=== PATIENT | female | born 1945 | race Caucasian/White ===

== ENCOUNTER 2017-07-22 02:42 | Emergency (ER) | payer MEDICARE, OTHER ==
[~2017-07-22] VITALS: Ht 167.6 cm; Wt 63.5 kg
[~2017-07-22 02:42] MED LIST: ACETAMINOPHEN325 M1 PO; ADVAIR 250-501 EACH INH; ALBUTEROL2.5 MG/3 M INH; AMLODIPINE BESY10 MG PO; ASPIRIN325 MG PO; ATORVASTATIN CA80 MG PO; BUPROPION HCL100 M1 PO; BUPROPION HCL200 MG PO; CARVEDILOL25 MG PO; CARVEDILOL3.125 MG PO; CLOPIDOGREL75 MG PO; COZAAR50 MG PO; DOXAZOSIN MESYLA2 MG PO; FLOVENT HFA12 G1 INH; HYDROCHLOROTHIA25 MG PO; IPRATROPIU0.2 MG/1 M INH; LORAZEPAM1 MG PO; NITROSTAT0.4 MG SL; NORCO 5-325 TA1 EACH PO; OXYCODONE HCL5 MG PO; PERCOCET 10-321 EACH PO; POLYETHYLENE G255 GM PO; PREDNISONE10 MG PO; PREDNISONE20 MG PO; PRILOSEC20 MG PO; PROAIR HFA8.5 GM INH; SEREVENT DISKU1 PUFF INH; SPIRIVA18 MCG INH; ST. JOSEPH ASPI81 MG PO; VENTOLIN HFA18 GM INH
[2017-07-22] MEDS ORDERED: NORVASC10 MG PO (03:37)
[2017-07-22] MEDS ORDERED: PULMICORT FLE180 MCG INH (03:43)
[2017-07-22] MEDS ORDERED: LEXAPRO10 MG PO (03:44)
[2017-07-22] MEDS ORDERED: PREDNISONE20 MG PO (04:29)
--- NOTE | 2017-07-22 12:57 | EKG ---
[facility] [address] [facility] [place] [address] Signed Normal sinus rhythm Nonspecific ST and T wave abnormality Inferior leads and Lateral leads. Abnormal ECG No previous ECGs available Confirmed by EVARISTO RAY MD ([id number]) on 07/22/2017 12:57:18 PM Electronically Signed By: EVARISTO RAY MD 07/22/17 1257 PATIENT NAME: SIA LOWRY LANDRY Electrocardiogram DATE OF : 45 PHYSICIAN: EVARISTO RAY MD REPORT #: [id number] REPORT IS CONFIDENTIAL AND NOT TO BE RELEASED WITHOUT AUTHORIZATION
== END 2017-07-22 05:07 | disposition home or self-care (01) ==
LOC: ED 02:42
DX: J44.1 Chronic obstructive pulmonary disease with (acute) exacerbation (principal); I10 Essential (primary) hypertension; I25.2 Old myocardial infarction; Z87.891 Personal history of nicotine dependence; Z90.49 Acquired absence of other specified parts of digestive tract; Z90.89 Acquired absence of other organs; Z88.8 Allergy status to other drugs, medicaments and biological substances; Z79.899 Other long term (current) drug therapy; Z79.82 Long term (current) use of aspirin
CPT/HCPCS: 71010; 80053; 83735; 83880; 84484; 85025; 93005; 93010; 94644; 96374; 99284; J2930

== ENCOUNTER 2017-08-24 10:25 | Emergency (ER) | payer MEDICARE, OTHER ==
[~2017-08-24] VITALS: Ht 167.6 cm; Wt 63.5 kg
[~2017-08-24 10:25] MED LIST changes: +LEXAPRO10 MG PO; +NORVASC10 MG PO; +PULMICORT FLE180 MCG INH
[2017-08-24] MEDS ORDERED: PREDNISONE20 MG PO (11:58)
== END 2017-08-24 12:32 | disposition home or self-care (01) ==
LOC: ED 10:25
DX: J44.1 Chronic obstructive pulmonary disease with (acute) exacerbation (principal); I10 Essential (primary) hypertension; Z86.73 Personal history of transient ischemic attack (TIA), and cerebral infarction without residual deficits; I25.2 Old myocardial infarction; Z90.49 Acquired absence of other specified parts of digestive tract; Z87.891 Personal history of nicotine dependence; Z88.8 Allergy status to other drugs, medicaments and biological substances; Z79.899 Other long term (current) drug therapy; Z79.82 Long term (current) use of aspirin; Z79.52 Long term (current) use of systemic steroids
CPT/HCPCS: 70450; 71020; 94640; 99284; J7512

== ENCOUNTER 2017-09-03 21:34 | Emergency (ER) | payer MEDICARE, OTHER ==
[~2017-09-03] VITALS: Ht 167.6 cm; Wt 63.5 kg
[2017-09-03] MEDS ORDERED: PANTOPRAZOLE SO20 MG PO (23:38)
[2017-09-03] MEDS ORDERED: PREDNISONE10 MG PO (23:42)
== END 2017-09-04 00:11 | disposition home or self-care (01) ==
LOC: ED 21:34
DX: S09.90XA Unspecified injury of head, initial encounter (principal); S20.211A Contusion of right front wall of thorax, initial encounter; I10 Essential (primary) hypertension; F41.9 Anxiety disorder, unspecified; I25.10 Atherosclerotic heart disease of native coronary artery without angina pectoris; F32.9 Major depressive disorder, single episode, unspecified; E78.00 Pure hypercholesterolemia, unspecified; Z86.73 Personal history of transient ischemic attack (TIA), and cerebral infarction without residual deficits; Z90.49 Acquired absence of other specified parts of digestive tract; Z79.02 Long term (current) use of antithrombotics/antiplatelets; Z90.89 Acquired absence of other organs; Z88.8 Allergy status to other drugs, medicaments and biological substances; Z79.899 Other long term (current) drug therapy; Z79.82 Long term (current) use of aspirin; Z79.52 Long term (current) use of systemic steroids; W06.XXXA Fall from bed, initial encounter
CPT/HCPCS: 70450; 71250; 80053; 84484; 85025; 85610; 85730; 99284

== ENCOUNTER 2017-09-04 19:38 | Emergency (ER) | payer MEDICARE, OTHER ==
[~2017-09-04] VITALS: Ht 167.6 cm; Wt 63.5 kg
[~2017-09-04 19:38] MED LIST changes: +PANTOPRAZOLE SO20 MG PO
== END 2017-09-04 22:59 | disposition home or self-care (01) ==
LOC: ED 19:38
DX: S09.90XA Unspecified injury of head, initial encounter (principal); I10 Essential (primary) hypertension; J44.9 Chronic obstructive pulmonary disease, unspecified; F41.9 Anxiety disorder, unspecified; F32.9 Major depressive disorder, single episode, unspecified; E78.00 Pure hypercholesterolemia, unspecified; Z87.891 Personal history of nicotine dependence; Z90.49 Acquired absence of other specified parts of digestive tract; Z90.89 Acquired absence of other organs; Z88.8 Allergy status to other drugs, medicaments and biological substances; Z86.73 Personal history of transient ischemic attack (TIA), and cerebral infarction without residual deficits; Z91.81 History of falling; Z79.899 Other long term (current) drug therapy; W06.XXXA Fall from bed, initial encounter
CPT/HCPCS: 99282

== ENCOUNTER 2017-09-05 20:01 | Emergency (ER) | payer MEDICARE, OTHER ==
[~2017-09-05] VITALS: Ht 167.6 cm; Wt 63.5 kg
== END 2017-09-05 23:28 | disposition home or self-care (01) ==
LOC: ED 20:01
DX: S00.83XA Contusion of other part of head, initial encounter (principal); I10 Essential (primary) hypertension; J44.9 Chronic obstructive pulmonary disease, unspecified; F41.9 Anxiety disorder, unspecified; I25.10 Atherosclerotic heart disease of native coronary artery without angina pectoris; F32.9 Major depressive disorder, single episode, unspecified; I25.2 Old myocardial infarction; Z87.891 Personal history of nicotine dependence; Z90.49 Acquired absence of other specified parts of digestive tract; Z88.8 Allergy status to other drugs, medicaments and biological substances; Z79.899 Other long term (current) drug therapy; Z79.52 Long term (current) use of systemic steroids; W06.XXXA Fall from bed, initial encounter
CPT/HCPCS: 70200; 99283

== ENCOUNTER 2017-10-09 09:48 | Inpatient (IN) | payer MEDICARE, OTHER ==
[~2017-10-09] VITALS: Ht 167.6 cm; Wt 63.5 kg
[2017-10-09] MEDS ORDERED: HALOPERIDOL0.5 MG PO (10:16)
[2017-10-09] MEDS ORDERED: ALBUTEROL2.5 MG/3 M INH (14:06)
[2017-10-09] MEDS ORDERED: NORCO 5-325 TA1 EACH PO (14:33)
--- NOTE | 2017-10-09 14:35 | NUR ---
[facility] Haloperidol order verified to be 0.5mg PO BID
--- NOTE | 2017-10-09 15:08 | NUR ---
PT CALLS OUT IN PAIN, UNABLE TO PINPOINT PAIN LOCATION. PAIN APPEARS CYCLIC OR SPASMATIC, ABOUT EVERY 5-10 MINUTES. ICE PACK W/ BARRIER PLACED ON AFFECTED HIP. WARM PACK W/ BARRIER PLACED ON NON-AFFECTED HIP. PRN PAIN MEDS GIVEN Q 1HR NEEDED. PAIN MEDS EFFECTIVE, PT APPEARS COMFORTABLE FOR A SHORT TIME.
--- NOTE | 2017-10-09 16:34 | NUR ---
SPOKE WITH PATIENTS DAUGHTER SELVIN URIBE [phone] IN ROOM. PATIENT IN BED, MOANING, CONFUSED AND NOT ANSWERING QUESTIONS. DAUGHTER STATES PATIENTS BASELINE IS LIGHT DEMENTIA, ALTHOUGH THIS LAST MONTH SHE HAS BEEN WHEELCHAIR BOUND. SHE STATES THEY HAVE PATIENT ON THE WAITING LIST FOR A ROOM AT [facility]. DAUGHTER IS AWARE THAT PATIENT MAY NEED A SNF STAY POST SURGERY BEFORE RETURNING TO ASSISTED LIVING. SHE STATES SHE WOULD LIKE TO KEEP HER IN [facility], SO [facility] IS FINE.
--- NOTE | 2017-10-09 17:46 | NUR ---
PT UNABLE TO SWALLOW PUDDING BITE WITH PO MEDICATIONS. ATTEMPTED MULTIPLE TIMES. ADVISED DR RAY, HE WILL CHANGED MEDS TO IV FOR TONIGHT.
--- NOTE | 2017-10-09 18:28 | NUR ---
PT TRANSFERED FROM ED, RIGHT FEMORAL NECK FX. POSITION OF COMFORT IS RIGHT SIDE. PT HAD SPASTIC PAIN WITH CRYING OUT. PAIN APPEARS WELL CONTROLLED AT THIS TIME. PRN MORPHINE GIVEN Q1 HR NEEDED. PT UNABLE TO SWALLOW, DR CORY BASURTO MD CHANGED MEDS TO IV FOR TONIGHT AND WILL READDRESS IN THE AM. PT ON 2.5L O2 AT BASELINE, CONT IN HOSPITAL. SCHEDULED FOR SURGERY AT 1345 10/10/17. NPO AT MIDNIGHT.
--- NOTE | 2017-10-09 19:53 | NUR ---
RECEIVED REPORT FROM DAY SHIFT RN. PATIENT IS RESTING IN BED ON HER RIGHT SIDE. PATIENT IS ON A PULSE ON IN PLACE READINGS ARE WNL. CALL LIGHT IN REACH.
--- NOTE | 2017-10-09 21:40 | NUR ---
PATIENTS ASSESMENT COMPLETED AND RECORDED. PATIENT IS NOT REPOSNIND TO QUESTIINING A THIS TIME. PATIENTS EYES ARE OPEN AND PATIENT CRIED OUT WHEN SHE WAS REPOSITIONED. PATIENTS EVENING MEDICATIONS GIVEN PER ORDER. ORAL CARE PROVIDED TO PATIENT. PATIENT TOLERATED ACTIVITY WELL. CALL LIGHT IN REACH.
--- NOTE | 2017-10-09 23:13 | NUR ---
PATIENT IS RESTING IN BED WITH EYES CLOSED. PATIENT HAS PUSE OX IN PLACE AND READINGS ARE WNL. CALL LIGHT IN REACH.
--- NOTE | 2017-10-10 00:24 | NUR ---
WHILE RECIEVING A NEB TREATMENT. PATIENT BECAME RESTLESS AND WAS CRYING OUT. PATIENT GIVEN PRN PAIN MEDICATION FOR NON-VERBAL CUES OF PAIN. PATIENT CONTINUES TO REST IN BED ON HER RIGHT SIDE. PULSE OX IN PLACE, READINGS ARE WNL. CALL LIGHT IN REACH
--- NOTE | 2017-10-10 01:54 | NUR ---
PATIENTS VITALS TAKEN AND RECORDED. PATIENTS 0200 MEDICATIONS GIVEN PER ORDER. PATIENT CONTINUES TO REST ON HER RIGHT SIDE. WHEN ASKED IF WE COULD MOVE THE PATIENT. PATIENT STATED A LOUD AND FIRM "NO". PATIENTS CALL LIGHT IN REACH.
--- NOTE | 2017-10-10 04:17 | NUR ---
PATIENTS 0400 NEB ADMINISTERED PER ORDER. PATIENT WAS CRYING. PATIENT GIVEN PRN PAIN MEDICATION PER ORDER. PATIENT IS NOW RESTING IN BED WITH EYES CLSOED. PULSE OX READINGS ARE WNL. CALL LIGHT IN REACH.
--- NOTE | 2017-10-10 04:31 | NUR ---
PATIENT RESTED WELL ON AND OFF THROUGHTOUT THE SHIFT. PATIENT IS NPO. PATIENT IS ON 2.5L VIA NC. PATIENT HAS PULSE OX IN PLACE. PATIENT DOES NOT RESPOND TO QUESTIONING. PATIENT DOES HOWEVER YELL "NO" WHEN TRYING TO REPOSITION HER. PATIENT HAS HUTCHISON IN PLACE AND OUTPUT IS QS. PATIENT HAS RECEIVED PRN PAIN MEDICATION X2. PATIENT DOES NOT USE CALL LIGHT. FREQUENT CHECKS MADE.
--- NOTE | 2017-10-10 05:31 | NUR ---
PATIENT WAS CRYING OUT. PATIENT GIVEN PRN PAIN MEDICATION PER ORDER. PATIENT CONTINUES TO YELL "NO" WHEN TRYING TO REPOSITION HER. PATIENTS CALL LIGHT IS WITHIN REACH.
--- NOTE | 2017-10-10 06:10 | NUR ---
PATIENT HAS LOW GRADE FEVER OF 100.4. PLACED CALL TO HOSPITALIST PER PARAMETERS. NO NEW ORDERS AT THIS TIME.
--- NOTE | 2017-10-10 06:12 | NUR ---
NURSE NOTIFIED RE VITAL SIGNS /TEMP.
--- NOTE | 2017-10-10 07:30 | NUR ---
REPORT RECIEVED FROM DARRELL HYDE. PT AWAKE BUT NON VERBAL WHEN ASKED QUESTIONS. APPEARS COMFORTABLE. IV INFUSING WNL.
--- NOTE | 2017-10-10 08:26 | NUR ---
ADMINISTERED MORNING MEDS. PT WAS MOANING AND UNABLE TO ANSWER IF SHE WAS IN PAIN. ADMINISTERED MORPH. AND PT NO LONGER APPEARS UNCOMFORTABLE. HUTCHISON CLAMPED FOR URINE SAMPLE BUT SO FAR NO URINE. 2L NC SATS 87%.
--- NOTE | 2017-10-10 09:15 | NUR ---
BED BATH, TRISTON, HUTCHISON CARE DONE 2 PERSON ASSIST. PATIENT MOANING IN PAIN WHEN MOVED.
--- NOTE | 2017-10-10 09:25 | NUR ---
PT RESTING WITH EYES CLOSED. ADJUSTED HUTCHISON CATHETER SHE IS NOT HAVING URINE. DID NOT HELP.
--- NOTE | 2017-10-10 09:39 | HP ---
[facility] [address] [place], [place] [address] Signed ADMISSION DATE: 10/09/2017 HISTORY OF PRESENT ILLNESS: The patient is a confused elderly white female, who lives in the local long-term care facility. She apparently had a fall in the bathroom earlier today and was unable to ambulate. She was brought to the emergency room and was complaining of right hip pain and x-rays were taken, which showed a displaced intertrochanteric fracture of the right hip and she was admitted to the Orthopedic Service. Past medical history is lengthy and I will defer that to Dr. Modi, the hospitalist big machine consultant. Current medications and allergies are also noted in his extensive note. At present time, her only injury appears to be that to her right hip. PHYSICAL EXAMINATION: GENERAL: She is alert, but not oriented to time, place, or person. She is not particularly responsive to questions. HEENT: There is no evidence of craniofacial trauma. NECK: Relatively stiff, but this is probably related to underlying osteoarthritis. There is nothing to suggest there is an acute cervical injury. CHEST: Clear. CARDIAC: Reveals a regular rhythm. ABDOMEN: Benign. EXTREMITIES: Right leg is shortened and externally rotated. Difficult to appreciate pedal pulses on either side. DIAGNOSTIC DATA: Her x-rays were reviewed and she has a three-part intertrochanteric with what appears to be a fairly stable posterior medial buttress. IMPRESSION AND PLAN: I have explained to her daughter that we typically recommend stabilizing this surgically rather expeditiously in the hopes of getting her up and moving again as rapidly as possible. However, I did share with her and her daughter the statistics concerning intertrochanteric hip fractures in the senile elderly females. To what, we reviewed the fact that a significant percentage do not survive their hospital stay and a much larger percentage do not survive for another six months. After outlining all potential risks, complications, and alternative methods of care of her daughter seem comfortable with proceeding with a right hip pinning tomorrow. Electronically Signed By: DUARTE HORTON MD 10/10/17 0939 PATIENT NAME: RAMIREZ LOWRYRA LANDRY HISTORY AND PHYSICAL DATE OF : 45 PHYSICIAN: DUARTE HORTON MD REPORT #: [id number] REPORT IS CONFIDENTIAL AND NOT TO BE RELEASED WITHOUT AUTHORIZATION [address] [address] Signed Duarte Horton MD [id number]/MODL /[id number] Electronically Signed By: DUARTE HORTON MD 10/10/17 0939 PATIENT NAME: SIA LOWRY APRIL HISTORY AND PHYSICAL DATE OF : 45 PHYSICIAN: DUARTE HORTON MD REPORT #: [id number] REPORT IS CONFIDENTIAL AND NOT TO BE RELEASED WITHOUT AUTHORIZATION
--- NOTE | 2017-10-10 10:25 | NUR ---
PATIENT RESTING IN BED. NO NEEDS AT THIS TIME.
--- NOTE | 2017-10-10 11:34 | NUR ---
PT SLEEPING. FAMILY STATES HE DID NOT SLEEP LAST NIGHT AND WANTS THE BLINDS CLOSED TO NAP UNTIL COMES IN. FAMILY WATCHING TV.
--- NOTE | 2017-10-10 12:06 | EKG ---
[facility] [address] [facility] [place] [address] Signed Poor data quality, interpretation may be adversely affected Normal sinus rhythm ST \T\ T wave abnormality, consider inferolateral ischemia Abnormal ECG When compared with ECG of 22-JUL-2017 02:50, ST no longer elevated in Inferior leads Confirmed by EVARISTO RAY MD ([id number]) on 10/10/2017 12:06:31 PM Electronically Signed By: EVARISTO RAY MD 10/10/17 1206 PATIENT NAME: SIA LOWRY LANDRY Electrocardiogram DATE OF : 45 PHYSICIAN: EVARISTO RAY MD REPORT #: [id number] REPORT IS CONFIDENTIAL AND NOT TO BE RELEASED WITHOUT AUTHORIZATION
--- NOTE | 2017-10-10 13:14 | NUR ---
PT WIPE DOWN DONE. HUTCHISON DRAINING TO GRAVITY. PT HAS MULTIPLE FAMILY IN ROOM. APPEARS COMFORTABLE.
--- NOTE | 2017-10-10 14:22 | NUR ---
PT IS WAITING FOR SURGERY-SON AND DAUGHTER IN RM WITH PT. HE MENTIONED THAT HE HADF SOME QUESTIONS REGARDING SURGERY-WHEN AND HOW LONG WILL IT TAKE? I WAS ABLE TO GET INFO FROM RN AND HE FELT A LITTLE MORE AT EASE. WILL FOLLOW NEEDED
--- NOTE | 2017-10-10 15:37 | NUR ---
PT OFF FLOOR WITH DARRELL TAYLOR FROM SURGERY. PT SLEEPING AT THE TIME.
--- NOTE | 2017-10-10 17:14 | NUR ---
BAR CODE SCANNER NOT WORKING AT THIS TIME. ANTIBOTIC GIVEN PER ANESTHESIA, ELIO BOONE.
--- NOTE | 2017-10-10 18:03 | NUR ---
10/10/17 1803 Dorinda Ovalle reportFROM FEATHER TRIMMER.
--- NOTE | 2017-10-10 19:15 | NUR ---
PT BACK TO FLOOR VIA BED WITH RN STACEY. PT DROWSY BUT AWAKENS TO NAME. PT APPEARS TO BE COMFORTABLE AND SMILED AT DAUGHTER. HUTCHISON DRAINING TO GRAVITY. REATTACHED TO IVF. LAP SITES X2 ONE IS SATURATED THE OTHER SLIGHT AMT DRAINAGE. ICE PACK IN PLACE. SATS 92%.
--- NOTE | 2017-10-10 19:56 | NUR ---
RECEIVED REPORT FROM DAY SHIFT RN. PATIENT JUST RETURNED FROM SURGERY. PATIENTS EYES ARE CLOSED. PULSE OX READINGS ARE WNL. BED ALARM ON AND CALL LIGHT IN REACH.
--- NOTE | 2017-10-10 20:15 | NUR ---
PATIENT ASSESMENT COMPLETED AND RECORDED. PATIENTS SECOND SET POST-OP VITALS TAKEN AND RECORDED. PATIENT IS AWAKE. PATIENT DOES NOT RESPOND TO QUESTIONING. PATIENTS DRESSSING ON RIGHT HIP IS C/D/I. ICE APPLIED TO RIGHT HIP. PATIENTS EVENING MEDICATIONS GIVEN PER ORDER. ORAL MEDICATIONS GIVEN PATIENT IS PENDING A SWALLOW EVAL. MD AWARE. PATIENT IS NOT RESTLESS AND APPEARS TO BE COMFORTABLE. PATIENT HAS HEEL PROTECTORS ON. PATIENT IS ON 4L VIA NC AND PULSE OX IN PLACE. PATIENT HAS BED ALARM ON FOR SAFETY AND CALL LIGHT IN REACH.
--- NOTE | 2017-10-10 22:05 | NUR ---
PATIENTS THIRD SET OF POST-OP VITALS TAKEN. PATIENT CONTINUES TO REST COMFORTABLY IN BED. BED ALARM IS ON AND CALL LIGHT IN REACH.
--- NOTE | 2017-10-10 22:10 | NUR ---
PATIENTS LAST SET OF POST-OP VITALS. PATIENT CONTINUES TO REST IN BED WITH EYES CLOSED. PULSE OX READINGS ARE WNL. BED ALARM IS ON AND CALL LIGHT IN REACH.
--- NOTE | 2017-10-10 23:53 | NUR ---
PATIENT CONTINUES TO REST IN BED. PATIENT WAS RESTLESS. PATIENT REPOSTISIONED IN BED. PATIENT REMAINS ON 4L VIA NC. PULSE OX READINGS ARE WNL. ICE PACK REPLENISHED AND APPLIED TO RIGHT HIP. CALL LIGHT IN REACH. BED ALARM ON FOR SAFETY.
--- NOTE | 2017-10-11 00:01 | NUR ---
PATIENT REPOSITIONED IN BED. PATIENT IS NOW CRYING OUT IN PAIN.
--- NOTE | 2017-10-11 00:20 | NUR ---
PATIENT GIVEN PRN PAIN MEDICATION PER ORDER. PATIENT DOES NOT ANSWER ANY QUESTIONS. PATIENT APPEARS TO BE UNCOMFORTABLE. WILL CONTINUE TO MONITOR.
--- NOTE | 2017-10-11 00:50 | NUR ---
PATIENT IS RESTING PEACFULLY IN BED. PATIENTS EYES ARE CLOSED. BREATHING IS EVEN AND UNLABORED, RR 16. PULSE OX READINGS ARE WNL. TITRATED DOWN TO 3L VIA NC. CALL LIGHT IN REACH.
--- NOTE | 2017-10-11 02:22 | NUR ---
PATIENTS VITALS TAKEN AND RECORDED. PATIENTS 0200 MEDICATIONS GIVEN PER ORDER. PATIENT DID SAY "HI". PATIENT HOWEVER DID NOT RESPOND TO HERMELINDA OTHER QUESTIONS ASKED. PATIENT TITRATED DOWN TO 2.5L VIA NC. CALL LIGHT IN REACH.
--- NOTE | 2017-10-11 03:28 | NUR ---
PATIENT REPOSITIONED. PATIENT CRIED OUT WITH ACTIVITY BUT SETTLED AFTER MOVEMENT. PATIENT IS ON 2.5L VIA NC. CALL LIGHT IN REACH.
--- NOTE | 2017-10-11 04:10 | NUR ---
PATIENT BEGAN TO CRY OUT IN PAIN AND BECAME RESTLESS. PATIENT COULD NOT TELL STAFF IF SHE WAS IN PAIN. PATIENT SHOWED OUTWARD SIGNS OF PAIN. PATIENT GIVEN PRN PAIN MEDICAITON PER ORDER. PATIENT REPOSITIONED IN BED. NEW ICE PACK PLACED ON PATIENTS RIGHT HIP. PATIENT DOES HAVE A SMALL AMOUNT OF DRAINAGE ON GAUZE SQUARE UNDER OPSITE. PATIENT APPEARS TO BE COMFORTABLE NOW. PATIENTS EYES ARE CLOSED. BREATHING IS EVEN AND UNLABORED, RR 16. BED ALARM ON AND CALL LIGHT IN REACH.
--- NOTE | 2017-10-11 04:43 | NUR ---
PATIENT RESTED WELL THROUGHOUT THE SHIFT. PATIENT DOES NOT RESPOND TO QUESTIONING. PATIENT DOES CRY OUT IN PAIN. PATIENT GIVEN PRN PAIN MEDICATION X2. PATIENT REMAINS ON 2L VIA NC. PULSE OX IN PLACE. HUTCHISON PRESENT URINE OUTPUT IS QS. PATIENT REPOSTIONED Q2. PATIENT HAS SMALL AMOUNT OF DRAINAGE ON UPPER INCISION SITE. DRESSSING IS CLEAN AND INTACT. PATIENT IS VERY PAINFUL W/MOVEMENT. PATIENT REMAINS NPO AWAITING A SWALOW EVAL. PATIENTS BED ALARM IS ON. HEEL PROTECTORS AND SCDS IN PLACE. PATIENT IS NOT ORIENTED. PATIENT DOES NOT USE CALL LIGHT.
--- NOTE | 2017-10-11 05:43 | NUR ---
PATIENT REPOSITIONED IN BED. FRESH ICE PACK APPLIED TO PATIENTS RIGHT HIP. PATIENT BARELY AWOKE WITH ACTIVITY. PATIENT REMAINS ON 2.5L VIA NC. PATIENT HAS PULSE OX IN PLACE AND READINGS ARE WNL. BED ALARM ON AND CALL LIGHT IN REACH.
--- NOTE | 2017-10-11 07:51 | NUR ---
REPORT RECIEVED FROM DARRELL HYDE. PT AWAKE AND TALKING THIS MORNING. DENIES PAIN. STATES THAT SHE FEELS MUCH BETTER THAN YESTERDAY.
--- NOTE | 2017-10-11 08:53 | NUR ---
PERFORMED A BEDSIDE SWALLOW EVAL. PT ABLE TO SWALLOW WATER ON A TEASPOON WELL. WAS NOT ABLE TO CLOSE MOUTH AROUND CUP OR STRAW. TOOK CRUSHED TYLENOL IN APPLESAUCE WELL. CMS INTACT. DRESSINGS UNCHANGED.
--- NOTE | 2017-10-11 08:59 | OR ---
[facility] [address] [place], [place] [address] Signed DATE OF OPERATION: 10/10/2017 SURGEON: Duarte Horton MD PREOPERATIVE DIAGNOSIS: Intertrochanteric fracture, right hip. POSTOPERATIVE DIAGNOSIS: Intertrochanteric fracture, right hip. PROCEDURE: Intramedullary nail fixation with a TFN nail. ANESTHESIA: General. SPECIMENS/COMPLICATIONS/BLOOD LOSS: There were no specimens or complications. Blood loss was under 100 mL. IMPLANT: A 10 x 170 TFN with a 100 mm spiral blade and a 36 mm 5.0 screw. WHAT WAS DONE: The patient was taken to the operating room. After anesthesia was induced and the airway secured, the patient was placed on the fracture table. The fracture was gently reduced to longitudinal traction and fairly neutral rotation. AP and lateral fluoroscopy confirmed an acceptable reduction. The patient was then prepped and draped in a routine sterile fashion. A small incision was made near the tip of the greater trochanter and the curved awl was introduced through the tip of the greater trochanter. After gently creating a hole in the tip of the greater trochanter, the guide miki was passed down into the femoral canal. We then reamed proximally with a 17 mm reamer distally with a 13 mm reamer. We then placed the TFN nail secured proximally with a 100 mm spiral blade, which we then locked. We then locked it distally with a single 36 mm 5.0 screw. The wounds were gently irrigated, closed in standard fashion. Sterile dressing was applied. She was awakened and taken to the recovery room where she arrived in stable condition. Counts were correct and antibiotic protocols were followed. Electronically Signed By: DUARTE HORTON MD 10/11/17 0859 PATIENT NAME: SIA LOWRY OPERATIVE REPORT DATE OF : 45 PHYSICIAN: DUARTE HORTON MD REPORT #: [id number] REPORT IS CONFIDENTIAL AND NOT TO BE RELEASED WITHOUT AUTHORIZATION [address] [place] [address] Signed Duarte Horton MD WFAmy/MODL /[id number] Electronically Signed By: DUARTE HORTON MD 10/11/17 0859 PATIENT NAME: SIA LOWRY OPERATIVE REPORT DATE OF : 45 PHYSICIAN: DUARTE HORTON MD REPORT #: [id number] REPORT IS CONFIDENTIAL AND NOT TO BE RELEASED WITHOUT AUTHORIZATION
--- NOTE | 2017-10-11 09:30 | NUR ---
PATIENT ASLEEP. NO FAMILY IN ROOM AT THIS TIME.
--- NOTE | 2017-10-11 09:56 | NUR ---
PT APPEARS TO BE RESTING COMFORTABLY. HUTCHISON DRAINING TO GRAVITY. SL PT PER NEW ORDER.
--- NOTE | 2017-10-11 11:58 | NUR ---
PT AWAKE AND ANSWERING QUESTIONS. PT DENIES PAIN AND STATES SHE FEELS SO MUCH BETTER THAN YESTERDAY. CHANGED CHANNEL AND PLACED SPEAKER NEXT TO HER. HUTCHISON DRAINING TO GRAVITY. DR HORTON IN TO ASSESS PT.
--- NOTE | 2017-10-11 13:48 | NUR ---
SWALLOWING EVALUATION COMPLETED. SEE RESULTS IN ASSESSMENT FOR DETAILS. RECOMMEND CHOPPED DIET WITH THIN LIQ (BY STRAW) AND 1:[address] TO FOLLOW FOR DIET TOLERANCE. MS JEREMY CCC-SALES REPRESENTATIVE [employer]
--- NOTE | 2017-10-11 15:22 | NUR ---
PT ATE LUNCH WITH HELP OF DAUGHTER. TOLERATED WELL. UP WITH ADJUNCT TEACHER. BUT WAS FAIRLY PAINFUL. ADMINISTERED MORPH AND REINFORCED DRESSING IT WAS LEAKING SLIGHTLY OUT OF CORNER.
--- NOTE | 2017-10-11 16:41 | NUR ---
SPOKE WITH PATIENT AND DAUGHTER IN ROOM. DAUGHTER STATES SHE IS STILL IN AGREEMENT FOR PATIENT TO GO TO [facility] FOR REHAB. PATIENT CHEERFUL, IS CLEARLY CONFUSED, BUT PLEASANT.
--- NOTE | 2017-10-11 17:01 | NUR ---
CLINICAL CHART PACK FAXED TO [facility]. FAX CONFIRMATION RECEIVED.
--- NOTE | 2017-10-11 18:38 | NUR ---
PT HAD MUCH BETTER DAY. PAIN WELL CONTROLLED. CMS INTACT. ANSWERS QUESTIONS APPROP. STOOD AT BEDSIDE WITH PHYS. THER.
--- NOTE | 2017-10-11 19:45 | NUR ---
RECEIVED REPORT FROM DAY SHIFT RN. PATIENT IS RESTING IN BED WATCHINGT TV. PATIENT IS REQUESTING PAIN MEDICATION WITH EVENING MEDS. PATIENT DENIES ANY FURTHER NEEDS. CALL LIGHT IN REACH.
--- NOTE | 2017-10-11 20:45 | NUR ---
PATIENT ASSESMENT COMPLETED. PATIENT IS ANSWERING QUESTIONS APPROPRIATELY, BUT IS SLOW TO RESPOND. PATIENT RATES PAIN AT A 5/10. PATIENT GIVEN PRN PAIN MEDICATION PER ORDER. PATIENTS EVENING MEDICATIONS GIVEN PER ORDER. PATIENTS VITALS TAKEN AND RECORDED. PATIENTS URINE OUTPUT IS ON THE LOWER END. WILL NOTIFY MD. PATIENT REPOSITIONED IN BED. NEW ICE PACK APPLIED TO RIGHT HIP. DRESSING IS CLEAN AND INTACT. PATIENTS UPPER GAUZE UNDER MEPILEX APPEARS SATURATED. PATIENTS MEDICATIONS GIVEN WITH CHOCOLATE PUDDING. PATIENT HAD NO ISSUES WITH SWALLOWING. PATIENT GIVEN SIPS OF WATER. NO FURTHER NEEDS AT THIS TIME. CALL LIGHT IN REACH
--- NOTE | 2017-10-11 22:00 | NUR ---
NOTIFIED OF PATIENTS LOWER URINE OUPUT. PAITENT IS NO ON IV FLUIDS. PATIENT IS RESTING IN BED WITH EYES CLOSED. PATIENTS BREATHING IS EVEN AND UNLABORED, RR18. PULSE OX READINGS ARE WNL. CALL LIGHT IN REACH.
--- NOTE | 2017-10-12 00:20 | NUR ---
PATIENT REPOSITIONED IN BED. PATIENT TOLERATED ACTIVITY WELL. PATIENT DENIES ANY NEEDS AT THIS TIME. CALL LIGHT IN REACH.
--- NOTE | 2017-10-12 01:49 | NUR ---
WHILE CHECKING PATIENTS URINE OUTPUT, PATIENT AWAKENED. PATIENT HAD AN INCREASE IN RR. PATIENT ALSO STARTED TO MAKE A WHEEZING SOUND. PATIENT BEGAN TO CRY OUT "HELP ME". RT CALLED TO EVALUATE PATIENT. PATIENT GIVEN PRN NEB. PATIENT ALSO GIVEN PRN PAIN MEDICATION PER ORDER. PATIENT IS SWINGING AT STAFF AND STATING "BE QUIET". AFTER MORPHINE AND NEB TREATMENT PATIENT HAS CALMED DOWN. PATIENTS VITALS TAKEN AND RECORDED. PATIENT APPEARS TO BE IN NO APPRENT DISTRESS. BED ALARM ON AND CALL LIGHT IN REACH.
--- NOTE | 2017-10-12 02:13 | NUR ---
PATIENT GIVEN 0200 MEDICATION PER ORDER. PATIENT CONTINUES TO COMPLAIN OF PAIN. PATIENT GIVEN PRN PAIN MEDICATION PER ORDER. WHEN TRYING TO GIVE PATIENT A DRINK OF WATER SHE YELLED "I AM FINE". PATIENTS BED ALARM ON AND CALL LIGHT IN REACH.
--- NOTE | 2017-10-12 04:36 | NUR ---
PATIENTS PULSE OX WAS NOT GETTING A GOOD READING. PLACE PROBE MONITOR ON PATIENTS RIGHT BIG TOE. PATIENT DID NOT AWAKEN DURING ACTIVITY. PATIENTS BREATHING IS EVEN AND UNLABORED, RR 15. PULSE OX READINGS ARE WNL. CALL LIGHT IN REACH.
--- NOTE | 2017-10-12 05:25 | NUR ---
PATIENT RESTED WELL THROUGHOUT THE SHIFT. PATIENT DID HAVE AN EPISODE OF SOB. PATIENT WAS GIVEN A NEB TREATMENT AND SOB WAS RESOLVED. HUTCHISON IN PLACE, URINE OUPUT MD EDILBERTO AWARE. PATIENT IS ON A DYSHPAGIA-CHOPPED DIET, THINK LIQUIDS OKAY. HEEL PROTECTORS AND SCDS IN PLACE. PATIENT HAS PULSE OX IN PLACE AND PROBE IS ON BIG TOE. PATIENT RECEIVED PRN PAIN MEDICATION X3. ICE ON RIGH HIP. DRESSING C/D/I, DRAINAGE NOTED ON UPPER INCISION. PATIENT RESPONDS TO QUESTIONING. PATIENT DID BECOME COMBATIVE AT ONE POINT. PATIENT DOES NOT USE CALL LIGHT.
--- NOTE | 2017-10-12 05:49 | NUR ---
PATIENT DENIES ANY PAIN. WHEN ASKED IF HER HIP HURTS IT WAS STATED "IT'S FINE". FRESH ICE PACKS PLACED ON PATIENTS RIGH HIP. NO NEW DRAINAGE ON DRESSING. PATIENT DENIES ANY FURTHER NEEDS. SIPS OF WATER PROVIDED. CALL LIGHT IN REACH.
--- NOTE | 2017-10-12 06:45 | NUR ---
RT IN THE ROOM. PATIENT RECEIVED PRN NEB FOR INCREASED RR AND WHEEZING. PATIENTS RR DECREASED AND PATIENT IS RESTING W/EYES CLOSED. PEULSE OX READINGS ARE WNL.
--- NOTE | 2017-10-12 08:00 | NUR ---
PATIENT AWAKE IN BED, AAOX3. PATIENT RATES PAIN 1/10 ON PAIN SCALE, BUT SHOOTS TO 8/10 ON PAIN SCALE WITH MOVEMENT. DISCUSSED WITH PATIENT'S IMPORTANCE OF DRINKING MORE FLUIDS. PATIENT STATED " I WOULD DRINK MORE IF YOU GAVE ME ICE SWEET ICE TEA." PATIENT DSG HAS SOME OLD DRAINAGE, ICE TO HIP. PATIENT APPEARS TO BE WHEEZING, AUSCULATION PRESENTS WHEEZING IN UPPER AIR WAY. ENCOURAGED PATIENT TO COUGH.
--- NOTE | 2017-10-12 10:00 | NUR ---
URINE OUTPUT INCREASED, CLEAR AND YELLOW IN HUTCHISON CATH. INPUT 900 FOR LAST FOUR HOURS. DISCUSSED WITH DR. MCGARRY, NOW TO . DISCUSSED GETTING UP TO RECLINER, ADMINISTERED 1 TAB NORCO FOR PAIN CONTROL AND UPCOMING ACTIVITY.
--- NOTE | 2017-10-12 10:11 | NUR ---
PT IS SITTIG UP IN BED WITH CALL LIGHT IN REACH. PT ASKED FOR MORE ICE TEA
--- NOTE | 2017-10-12 11:15 | NUR ---
[facility] REQUESTED UPDATED PROG NOTES. THESE WERE FAXED AND FAX CONFIRMATION RECEIVED.
--- NOTE | 2017-10-12 12:12 | NUR ---
PT WAS IN BED, AWAKE AND AWARE OF MY PRESENCE. SLOW TO FORMULATE RESPONSE. PT SAID SHE HAD NO PAIN, NO FAMILY IN RM AT TIME. WILL CONTINUE TO FOLLOW
--- NOTE | 2017-10-12 13:13 | NUR ---
PATIENT TRANSFERED TO RECLINER, 2 PERSON MAX ASSIST. PATIENT RATED PAIN 10/10 WITH TRANSFER, THEN AFTER RESTING RATES PAIN 3/10 ON PAIN SCALE. ADMINISTERED SECOND TAB OF NORCO FOR PAIN CONTROL. PATIENT EATING LUNCH, AND BREATHING EASY, OXYGEN SATURATION 93% ON 2.5L. PROVIDED PATIENT WITH MORE ICE TEA. DR. MCGARRY ROUNDED ON PATIENT, NO NEW ORDERS. DR. HORTON ROUNDED ON PATIENT, POSSIBLE DISCHARGE TO [facility] TODAY. DISCUSSED PAIN CONTROL REGIME.
--- NOTE | 2017-10-12 14:00 | NUR ---
ORDERS, PASSR FAXED TO [facility]. CONFIRMATION RECEIVED.
--- NOTE | 2017-10-12 14:00 | NUR ---
ATTEMPTED TO PROVIDED SUPPOSITORY, PATIENT YELLED OUT AND SCREAMED "NO!" THEN ATTEMPTED TO HIT AT STAFF. DISCUSSED RISKS OF CONSTIPATION WITH PATIENT AND THAT HAD NOT HAD BM IN 4 DAYS. PATIENT CONTINUED TO REFUSE. REPORTED TO DR. MCGARRY. NO NEW ORDERS FOR BOWEL CARE. PATIENT HAS NOT BEEN EATING MUCH SINCE ADMISSION, ONLY STARTED EATING SOME YESTERDAY AND THIS MORNING AT BREAKFAST. DR. MCGARRY VERBALIZED THAT PATIENT PROBABLY DOESN'T HAVE ANYTHING FOR A BM AND SINCE SHE IS SHOWING NO SIGNS OF DISCOMFORT, NO FURTHER TREATMENT AT THIS TIME, TO LET KIM KNOW STAFF ATTEMPTED BUT PATIENT REFUSED.
--- NOTE | 2017-10-12 14:33 | NUR ---
PT IS RESTING IN BED SAFELY WITH CALL LIGHT IN REACH. PT ASKED FOR LIGHTS TO BE TURNED OFF.
--- NOTE | 2017-10-12 15:25 | NUR ---
CORRECTED ORDERS TO [facility]. THEY STATE THEY WILL ACCEPT PATIENT. DISCUSSED THAT PATIENT REQUIRES [facility] TO CHAIR, AND IS CONCERNED WITH WHEELCHAIR TRANSFER. NON-EMERGENT EMS TRANSFER FORM COMPLETED BY PHYSICIAN.
--- NOTE | 2017-10-12 17:00 | NUR ---
PATIENT LEFT FACILITY BY NON-EMERGENT EMS TRANSFER. CHART PACK WITH CLINICALS, ORDERS, RX LEFT WITH PATIENT TO FACILITY. STAFF UPDATED TO CALL REPORT.
--- NOTE | 2017-10-12 17:01 | NUR ---
PLACED TEGADERM AND GAUZE TO RIGHT UPPER HIP WHERE DRAINAGE WAS PRESENT. CALLED REPORT TO KIM, SPOKE WITH NURSE ARIANNA. ADMINISTERED PAIN AROUND 1500 FOR PAIN RATED 6/10 ON PAIN SCALE. PATIENT APPEARED MORE COMFORTABLE BEFORE LEAVING NON EMERGENT TRANSPORT. LAST BREATHING TX 1600. PATIENT AAOX3. LUNG SOUNDS CLEAR.
--- NOTE | 2017-10-12 17:34 | NUR ---
STAFF STATES THEY SPOKE WITH PATIENTS DAUGHTER RIGHT AFTER SHE LEFT TO UPDATE HER.
--- NOTE | 2017-10-13 13:39 | DS ---
[facility] [address], [place] [address] Signed ADMISSION DATE: 10/09/2017 DISCHARGE DATE: 10/12/2017 FINAL DIAGNOSIS AT THE TIME OF DISCHARGE: Intertrochanteric fracture of the right hip. PROCEDURES: TFN nailing of the right hip. HISTORY OF PRESENT ILLNESS: The patient is an elderly white female who resides in a local long-term care facility. She apparently has had multiple falls in the recent past and on the day of admission, fell in the bathroom and was unable to get up and/or move about. She was brought to the emergency room, where x-rays revealed an intertrochanteric fracture of the right hip, displaced. She was admitted to the Orthopedic Service and was evaluated by the Hospitalist Service who felt that despite her numerous issues, was medically optimized for surgical intervention. On the 10 of October, she was taken to the operating room, where she underwent an uneventful TFN nailing of her right hip. Postoperatively, she has done surprisingly well. Her incisions are clean and dry. Her metabolic parameters are stable and she has had no significant cardiorespiratory sequelae up to this point. At the present time because of her dementia, she has difficulty cooperating with Physical Therapy and maintaining her weightbearing status, so she is being transferred to [facility]. In terms of pain management, we will keep her on the hydrocodone every 4 hours as needed for pain. She will resume her other home medications. We will ask them to take out the hector in two weeks and have her continue with therapy, weightbearing as tolerated on the right side, and would like to see her back with a new x-ray in about six weeks. MD MACARENA Turner/CR Electronically Signed By: ASHLEE HORTON MD 10/13/17 1339 PATIENT NAME: SAI LOWRY LANDRY DISCHARGE SUMMARY DATE OF : 45 PHYSICIAN: ASHLEE HORTON MD REPORT #: [id number] REPORT IS CONFIDENTIAL AND NOT TO BE RELEASED WITHOUT AUTHORIZATION [address] [place] [address] Signed /[id number] Electronically Signed By: ASHLEE HORTON MD 10/13/17 1339 PATIENT NAME: SIA LOWRY LANDRY DISCHARGE SUMMARY DATE OF : 45 PHYSICIAN: ASHLEE HORTON MD REPORT #: [id number] REPORT IS CONFIDENTIAL AND NOT TO BE RELEASED WITHOUT AUTHORIZATION
== END 2017-10-12 16:25 | DRG 482 ==
LOC: ED 09:48 → MS 12:32
PROVIDERS: Orthopaedic Surgery; ADMIT Internal Medicine
PROC: 0QH606Z Insertion of Intramedullary Internal Fixation Device into Right Upper Femur, Open Approach (ICD-10-PCS; principal; 2017-10-10 15:30)
DX: S72.141A Displaced intertrochanteric fracture of right femur, initial encounter for closed fracture (principal); W19.XXXA Unspecified fall, initial encounter; G89.18 Other acute postprocedural pain; I10 Essential (primary) hypertension; J44.9 Chronic obstructive pulmonary disease, unspecified; F32.9 Major depressive disorder, single episode, unspecified; Z99.3 Dependence on wheelchair; K21.9 Gastro-esophageal reflux disease without esophagitis; F03.90 Unspecified dementia, unspecified severity, without behavioral disturbance, psychotic disturbance, mood disturbance, and anxiety; F41.9 Anxiety disorder, unspecified; Z86.73 Personal history of transient ischemic attack (TIA), and cerebral infarction without residual deficits
CPT/HCPCS: 01230; 36415; 36600; 64447; 71010; 73502; 76942; 80048; 80053; 81001; 82803; 83735; 85025; 92610; 93005; 93010; 94640; 94762; 97162; 97530; C1713; J0330; J0690; J1170; J1630; J1720; J2270; J2704; J2795; J3010; J3475; J7030; J7120